=== PATIENT | male | born 1980 | race Two or more races ===

== ENCOUNTER 2020-08-14 00:16 | Emergency (ER) | payer OTHER ==
[~2020-08-14] VITALS: Ht 188 cm; Wt 111.1 kg
[2020-08-14 01:40] VITALS: BP 139/93
[2020-08-14] MEDS ORDERED: ONDANSETRON ODT 4 MG TAB PO ONE (01:45)
[2020-08-14] MEDS ORDERED: HYDROcodone-ACET 10/325MG TAB PO ONE (01:45)
[2020-08-14] MEDS ORDERED: TETANUS-DIPTH-ACEL PERTUSSIS 0.5ML SYR Tdap IM ONE (02:30)
== END 2020-08-14 03:49 | disposition home or self-care (01) ==
LOC: ER 00:16
DX: S01.01XA Laceration without foreign body of scalp, initial encounter (principal); Y04.2XXA Assault by strike against or bumped into by another person, initial encounter; Y93.89 Activity, other specified; Y92.89 Other specified places as the place of occurrence of the external cause; Y99.8 Other external cause status
CPT/HCPCS: 12004; 70450; 90471; 90715; 99284; J2001; Q0162

== ENCOUNTER 2020-09-01 13:08 | Emergency (ER) | payer OTHER ==
[~2020-09-01] VITALS: Ht 188 cm; Wt 108.9 kg
[2020-09-01 13:19] VITALS: BP 121/87
== END 2020-09-01 14:06 | disposition home or self-care (01) ==
LOC: ER 13:08
DX: S01.01XD Laceration without foreign body of scalp, subsequent encounter (principal); Y08.89XD Assault by other specified means, subsequent encounter